=== PATIENT | male | born 1960 | race Two or more races ===

== ENCOUNTER 2018-09-18 09:51 | Observation (INO) ==
[2018-09-18] MEDS ORDERED: Sodium Chloride 0.9% 1,000 ML PRIMARY IV ONE (10:10)
[2018-09-18] MEDS ORDERED: ONDANSETRON 4 MG/2 ML VIAL IVP ONE (10:10)
[2018-09-18] MEDS ORDERED: KETOROLAC 15 MG/1 ML VIAL IVP ONE (10:10)
[2018-09-18] MEDS ORDERED: ASPIRIN 81 MG (BABY) CHEWABLE TABLET PO ONE (10:10)
[2018-09-18] MEDS ORDERED: NITROGLYCERIN 0.4 MG SL TAB (BOTTLE OF 3) SL ONE (10:10)
--- NOTE | 2018-09-18 10:14 | PDOC ---
Chest Pain HPI - General Chief Complaint: Chest Pain Stated Complaint: CHEST PAIN SINCE 2329 Date Seen by Provider: 09/18/18 Time Seen by Provider: 09:50 Source: Patient Treatment Prior to Arrival: REPORTS: None Nurse's Notes Reviewed & Considered: Yes - History of Present Illness Initial Comments: This is a well-developed, well-nourished, 57-year-old male, complaining of chest pain. Patient is a who was just released from a group home in [place] and is traveling through [place] on his way home. He's had 3 days of chest pain that became acutely worse today with dizziness which is what impelled him to come to the emergency room. He stopped here in [place] to fuel his car and when he became dizzy he sought medical attention. Presently he has chest pain that he describes as sharp substernal with radiation to his upper chest and neck. He has associated shortness of breath. Patient is complaining of a mild headache, denies any runny nose or sore throat, has mild cough, denies any nausea vomiting or diarrhea, no fever chills or sweats, no dysuria or hematuria, no rashes. 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 Some of his stories appear to be fabricated. Patient does have a history of bypass grafting and is uncertain of how many grafts he has. Body Location Affected: REPORTS: Chest Timing: REPORTS: Constant Duration: <1 week (3 days) Severity: Moderate Context: REPORTS: Activity Quality: REPORTS: "Pain", Sharpness Radiation: REPORTS: Jaw (L), Neck (L) Associated Symptoms: REPORTS: Shortness of Breath, Hurts to Breathe Modifying Factors: improves with: None Reported Similar Symptoms Previously: Yes Any Prior Injuries Related to Current Complaint?: No - Patient Home Medications Home Medications: Home Medications Apixaban [Eliquis] 2.5 mg PO BID 09/18/18 Cyclosporine [Restasis] 2 drp EACH EYE DAILY 09/18/18 Digoxin [Digox] 250 mcg PO DAILY 09/18/18 Naloxegol Oxalate [Movantik] 25 mg PO DAILY 09/18/18 RX: Amiodarone HCl 400 mg PO BID 09/18/18 RX: Atorvastatin Calcium 80 mg PO BEDTIME 09/18/18 RX: Baclofen 20 mg PO BID 09/18/18 RX: Buspirone HCl 5 mg PO BID 09/18/18 RX: Fluoxetine HCl 60 mg PO DAILY 09/18/18 RX: Furosemide 20 mg PO DAILY 09/18/18 RX: Glyburide 2.5 mg PO BID 09/18/18 RX: Metoprolol Succinate 50 mg PO BID 09/18/18 RX: Mirtazapine 45 mg PO BEDTIME 09/18/18 RX: Potassium Chloride [K-Tab ER] 20 meq PO DAILY 09/18/18 metFORMIN Tab [Glucophage Tab] 1,000 mg PO BID 09/18/18 - Patient Allergies Allergies/Adverse Reactions: Allergies Allergy/AdvReac Type Severity Reaction Status Date / Time divalproex sodium Allergy Severe Other : Verified 09/18/18 10:08 [From Depakote] See Comment trazodone Allergy Severe Anaphylaxis Verified 09/18/18 10:09 meperidine [From Demerol] Allergy Unknown Not Verified 09/18/18 10:09 Applicable ROS - Limitations ROS Limitations: No Limitations Constitution: REPORTS: Denies Symptoms Cardiovascular: REPORTS: Chest Pain Respiratory: REPORTS: Hurts To Breathe, Shortness Of Breath Neurological: REPORTS: Headache Gastrointestinal: REPORTS: Denies GI Symptoms Endocrine: REPORTS: Denies Symptoms Musculoskeletal: REPORTS: Neck Pain Genitourinary: REPORTS: Denies Symptoms Eyes: REPORTS: Denies Symptoms ENT: REPORTS: Denies Symptoms Skin: REPORTS: Denies Skin Symptoms Lympathic: REPORTS: Denies Lympathic Symptoms Immunologic: POSITIVE: Denies Symptoms Psychiatric: POSITIVE: Denies Psych Symptoms Chest Pain PE - General Appearance General Appearance: REPORTS: Alert, Cooperative, No Acute Distress, No Evidence of Trauma - HEENT HEENT: POSITIVE: Head Inspection Nml, Eyes Inspection Nml, Ears Inspection Nml, Nose Inspection Nml, Oral/Dental Inspect. Nml, Pharynx Inspect. Nml, PERRL, EOMI - Neck Neck: REPORTS: Normal Inspection - Respiratory Respiratory: REPORTS: No Respiratory Distress, Breath Sounds Normal, Chest Non- Tender - Cardiovascular Cardiovascular: REPORTS: Regular Rate and Rhythm, Heart Sounds Normal, Strong Pulses, No Murmur, No Gallop, No Friction Rub, No JVD Peripheral Pulses: Radial (L): 4+ - Abdomen Abdomen: Soft: (All Quadrants), Normal Bowel Sounds: (All Quadrants), Denies Tenderness: (All Quadrants), No Splenomegaly: (All Quadrants), No Hepatomegaly: (All Quadrants), No Guarding: (All Quadrants), No Rebound: (All Quadrants), No Palpable Pulse: (All Quadrants), No Palpabale Mass: (All Quadrants), No Distention: (All Quadrants), No Rigidity: (All Quadrants) - Skin Skin: REPORTS: Intact, Normal For Race, Warm, Dry, No Rash - Extremities Extremity: Non-Tender: (All Extremities), Normal ROM: (All Extremities), Normal Inspection: (All Extremities), Pelvis Stable: (All Extremities) - Neurological / Psychological Neurological: POSITIVE: Affect Apporpriate, Oriented X3, Motor Normal, Sensation Normal Chest Pain Progress - Results Reviewed by me Xrays/CTs/US Reviewed by me: Yes Discussed with Radiologist: Yes Lab Results Reviewed by Me: Yes CBC and BMP: 09/18/18 10:45 09/18/18 10:53 Lab Results:: Laboratory Results 09/18/18 09/18/18 09/18/18 10:45 10:45 10:53 WBC 11.0 H RBC 4.45 L Hgb 11.7 L Hct 36.6 L MCV 82 MCH 26.4 L MCHC 32.0 L RDW Coeff of Sonya 15.2 H Plt Count 256 MPV 7.7 Neut % (Auto) 66.6 Lymph % (Auto) 18.2 Pitt % (Auto) 9.8 Eos % (Auto) 4.8 Baso % (Auto) 0.6 Neut # (Auto) 7.35 Lymph # (Auto) 2.01 Pitt # (Auto) 1.08 H Eos # (Auto) 0.53 Baso # (Auto) 0.07 WBC Morphology Comment Normal morphology Plt Morphology Comment Normal morphology RBC Morph Comment Normal morphology PT 15.3 H INR 1.33 APTT 22.7 L D-Dimer 353 H VBG pH 7.45 H VBG pCO2 33 L VBG HCO3 23 VBG Base Excess -1 Sodium Potassium Chloride Carbon Dioxide Anion Gap BUN Creatinine Estimated GFR BUN/Creatinine Ratio Glucose Calculated Osmolality Lactic Acid Calcium Magnesium Total Bilirubin AST ALT Alkaline Phosphatase CK-MB (CK-2) Troponin I Handheld C-Reactive Protein NT-Pro-B Natriuret Pep Total Protein Albumin Globulin Albumin/Globulin Ratio TSH Ur Collection Type Urine Color Urine Clarity Urine pH Ur Specific [place] U Specif Grav (Refrac) Urine Protein Urine Glucose (UA) Urine Ketones Urine Occult Blood Urine Nitrate Urine Bilirubin Urine Urobilinogen Ur Leukocyte Esterase Ur Culture Indicated? Urine Opiates Screen Ur Buprenorphine Ur Oxycodone Screen Urine Methadone Screen Ur Propoxyphene Screen Barbiturate Screen U Tricyclic Antidepress Phencyclidine Screen Amphetamines Screen U Methamphetamines Scrn Benzodiazepines Screen Cocaine Screen U Marijuana (THC) Screen Serum Alcohol 09/18/18 09/18/18 09/18/18 10:53 10:53 10:53 WBC RBC Hgb Hct MCV MCH MCHC RDW Coeff of Sonya Plt Count MPV Neut % (Auto) Lymph % (Auto) Pitt % (Auto) Eos % (Auto) Baso % (Auto) Neut # (Auto) Lymph # (Auto) Pitt # (Auto) Eos # (Auto) Baso # (Auto) WBC Morphology Comment Plt Morphology Comment RBC Morph Comment PT INR APTT D-Dimer VBG pH VBG pCO2 VBG HCO3 VBG Base Excess Sodium 145 Potassium 4.1 Chloride 108 Carbon Dioxide 21 L Anion Gap 16 BUN 17 Creatinine 1.1 Estimated GFR > 60 BUN/Creatinine Ratio 15.45 Glucose 164 H Calculated Osmolality 305.0 H Lactic Acid 3.2 H Calcium 9.1 Magnesium 2.1 Total Bilirubin 0.3 AST 38 ALT 53 Alkaline Phosphatase 66 CK-MB (CK-2) 3.34 Troponin I Handheld C-Reactive Protein 2.0 H NT-Pro-B Natriuret Pep 580 H Total Protein 7.0 Albumin 4.0 Globulin 3.0 Albumin/Globulin Ratio 1.30 TSH 2.37 Ur Collection Type Urine Color Urine Clarity Urine pH Ur Specific [place] U Specif Grav (Refrac) Urine Protein Urine Glucose (UA) Urine Ketones Urine Occult Blood Urine Nitrate Urine Bilirubin Urine Urobilinogen Ur Leukocyte Esterase Ur Culture Indicated? Urine Opiates Screen Ur Buprenorphine Ur Oxycodone Screen Urine Methadone Screen Ur Propoxyphene Screen Barbiturate Screen U Tricyclic Antidepress Phencyclidine Screen Amphetamines Screen U Methamphetamines Scrn Benzodiazepines Screen Cocaine Screen U Marijuana (THC) Screen Serum Alcohol 09/18/18 09/18/18 09/18/18 10:53 10:53 12:17 WBC RBC Hgb Hct MCV MCH MCHC RDW Coeff of Sonya Plt Count MPV Neut % (Auto) Lymph % (Auto) Pitt % (Auto) Eos % (Auto) Baso % (Auto) Neut # (Auto) Lymph # (Auto) Pitt # (Auto) Eos # (Auto) Baso # (Auto) WBC Morphology Comment Plt Morphology Comment RBC Morph Comment PT INR APTT D-Dimer VBG pH VBG pCO2 VBG HCO3 VBG Base Excess Sodium Potassium Chloride Carbon Dioxide Anion Gap BUN Creatinine Estimated GFR BUN/Creatinine Ratio Glucose Calculated Osmolality Lactic Acid Calcium Magnesium Total Bilirubin AST ALT Alkaline Phosphatase CK-MB (CK-2) Troponin I Handheld 0.010 C-Reactive Protein NT-Pro-B Natriuret Pep Total Protein Albumin Globulin Albumin/Globulin Ratio TSH Ur Collection Type Clean catch urine Urine Color Dark yellow Urine Clarity Clear Urine pH 5.5 Ur Specific [place] 1.020 U Specif Grav (Refrac) 1.020 Urine Protein Trace Urine Glucose (UA) Negative Urine Ketones 15 Urine Occult Blood Negative Urine Nitrate Negative Urine Bilirubin Small Urine Urobilinogen 1.0 Ur Leukocyte Esterase Negative Ur Culture Indicated? Culture not set Urine Opiates Screen Negative Ur Buprenorphine Negative Ur Oxycodone Screen Negative Urine Methadone Screen Negative Ur Propoxyphene Screen Negative Barbiturate Screen Negative U Tricyclic Antidepress Negative Phencyclidine Screen Negative Amphetamines Screen Negative U Methamphetamines Scrn Negative Benzodiazepines Screen Positive H Cocaine Screen Negative U Marijuana (THC) Screen Negative Serum Alcohol < 10 EKG Interpretation:: POSITIVE: Normal Sinus Rhythm - Patient's Progress Re-Examine Time: 12:52 Status: POSITIVE: Improved MDM / ED Course: Patient was evaluated, an IV started, blood drawn and sent to the lab for studies, EKG, chest x-ray, and CT scan of his chest were obtained. Findings: CBC shows white count of 11, hemoglobin 11.7, hematocrit 36.6, platelets are 256. Coag studies show PT of 15.3, INR 1.33, PTT of 22.7. D- dimer is elevated at 353. CK-MB is 3.34 and troponin is 0.010. EKG shows a sinus rhythm with a rate of 65 beats a minute and no ST elevations. Lactic acid is 2.2. Blood gases show a pH of 7.45, PCO2 of 33, October 23, base excess of - 1. CMP shows a CO2 of 21 and glucose 164, the remainder the panel is normal. BNP is elevated at 580. CRP is 2.0. TSH is normal at 2.37. Urinalysis is negative. Urine drug screen is positive for benzodiazepines and negative for all other substances tested. Blood alcohol is less than 10. Lactic acid is 3.2. Chest x-ray shows vascular congestion versus pneumonitis. CT scan of the chest shows no PE but there is acute left-sided heart failure that partially explains the x-ray findings. Assessment: #1 chest pain with normal enzymes and EKG. #2 congestive heart failure. #3 hypoxia. Plan: Admission to rule out myocardial infarction. Quality Measure Initiative: CP/AMI: POSITIVE: EKG Quality Measure Initiative: CAP: POSITIVE: CXR or CT - Consult Consult (If Yes, Name of Consulting MD & Time Called): Yes (Dr. Giordano) Consulting MD will see pt:: POSITIVE: [facility] [place] Admit Counseled: POSITIVE: Patient, RE: Lab Results, RE: Radiology Results, RE: DX, RE: Need for F/U Patient Care Time - Estimated PCT Patient Care Time (In Minutes): 45 Vital Signs - VS Reviewed Vital Signs Reviewed: Yes Discharge Clinical Impression: Chest pain Discharge Disposition: Admit to Inpatient Condition: Stable Date Decision to Admit to Inpatient: 09/18/18 Time Decision to Admit to Inpatient: 12:51
--- NOTE | 2018-09-18 10:14 | EKG ---
[address] [address] Measurements Intervals [place] Rate: 65 P: 21 DC: 229 QRS: 59 QRSD: 98 T: 66 QT: 465 QTc: 476 Interpretive Statements SINUS RHYTHM WITH FIRST DEGREE AV BLOCK MODERATE ST DEPRESSION [0.05+ mV ST DEPRESSION] PROLONGED QT INTERVAL No previous ECG available for comparison Electronically Signed On 09-18-18 17:58:41 MDT by Wale Hernandez [email or web address]
[2018-09-18 10:52] LABS: RED BLOOD COUNT 4.45 10^6/uL (4.70-6.10)
[2018-09-18 10:53] LABS: BASOPHILS # (AUTO) 0.07 10*3/UL; BASOPHILS % (AUTO) 0.6 % (0-1); EOSINOPHILS # (AUTO) 0.53 10*3/UL; EOSINOPHILS % (AUTO) 4.8 % (0-8); Hematocrit [HCT] 36.6 % (42.0-52.0); Hemoglobin [HGB] 11.7 g/dL (14.0-18.0); LYMPHOCYTES # (AUTO) 2.01 10*3/uL; MEAN CORPUSCULAR HEMOGLOBIN 26.4 PG (27-31); MEAN CORPUSCULAR VOLUME 82 FL (80-90); MEAN PLATELET VOLUME 7.7 FL (7.4-12.2); MONOCYTES # (AUTO) 1.08 10*3/UL (0.3-0.8); MONOCYTES % (AUTO) 9.8 % (5-15); NEUTROPHILS # (AUTO) 7.35 10*3/UL; NEUTROPHILS % (AUTO) 66.6 % (50-80); PLATELET MORPHOLOGY COMMENT NORMAL MORPHOLOGY (NORM); RBC MORPHOLOGY COMMENT NORMAL MORPHOLOGY (NORM); WBC MORPHOLOGY COMMENT NORMAL MORPHOLOGY (NORM)
[2018-09-18 10:55] LABS: VENOUS PH 7.45 (7.32-7.42)
[2018-09-18 11:06] LABS: BLOOD UREA NITROGEN 17 mg/dL (7-22); BUN/CREATININE RATIO 15.45 (6-20)
--- NOTE | 2018-09-18 11:09 | DI ---
EXAM: XR Chest, 1 View CLINICAL HISTORY: Chest pain TECHNIQUE: Frontal view of the chest. COMPARISON: No relevant prior studies available. FINDINGS: Lungs: Mildly increased interstitial markings. The lungs are otherwise clear without focal consolidation. Pleural space: Unremarkable. The costophrenic angles are sharp. No visible pneumothorax. Heart: Unremarkable. No cardiomegaly. Mediastinum: Unremarkable. Bones/joints: Status post median sternotomy. Mild degenerative changes throughout the visualized spine and shoulder joints. IMPRESSION: Mildly increased interstitial markings. This is nonspecific but may suggest pulmonary vascular congestion or an interstitial pneumonitis. No focal consolidation.
[2018-09-18 12:20] LABS: BILIRUBIN,URINE SMALL (NEG); CLARITY,URINE CLEAR (CLEAR); GLUCOSE, URINE (UA) NEGATIVE (NEG); OCCULT BLOOD,URINE NEGATIVE (NEG); PH,URINE 5.5 (5.0-8.5); PROTEIN,URINE TRACE mg/dl (NEG)
[2018-09-18 12:21] LABS: COLOR,URINE DARK YELLOW (Y); URINE SAMPLE TYPE CLEAN CATCH URINE
--- NOTE | 2018-09-18 12:23 | DI ---
CT ANGIOGRAM OF THE CHEST, 09/18/2018 11:29 AM : Clinical History: Chest pain. Shortness of breath. Status post recent CABG. Previous Exam: None at this facility. Comparison is made with the AP portable upright chest x-ray obt ained earlier today at 1016 hours. Technique: Scans from base of neck to lung bases with IV contrast. Bolus tracking protocol was used f or timing the injection. Non-MIPS and MIPS sagittal/coronal images generated. IV Contrast: 80 mL of Ultravist 370. Base of Neck: Normal. Nodes: Normal axillary, supraclavicular, mediastinal, and hilar lymph nodes. Heart: Status post CABG. There is no pericardial effusion. No chamber enlargement is appreciated. The re is reflux of contrast into the inferior vena cava indicating tricuspid insufficiency. Aorta: Normal thoracic aorta. No aneurysm or dissection. Pulmonary Arteries: No pulmonary emboli or pulmonary embolism with infarction present. There is mild pulmonary arterial hypertension. Lungs: No acute infiltrates. There are Juan Manuel A line Juan Manuel B lines present with a diffuse groundglas s pattern throughout both lungs with a gradient from anterior to posterior with more changes posterio rly. These findings are consistent with acute left heart failure. Review of the chest x-ray shows rev ersal of flow to the upper lobes with peribronchial cuffing and increased vascular markings in both l ungs with a normal heart size. These chest x-ray changes reflect acute left heart failure. Effusion(s): None. Nodules: None. Bony Structures: Normal visualized portions of ribs, scapulae, clavicles, and shoulders. The sternum shows evidence of a recent midline sternotomy. Normal visualized portions of thoracic spine. Limited Upper Abdomen: Normal adrenal glands and spleen. Normal limited views of liver and pancreas. READIN. There is no pulmonary embolism or pulmonary embolism with infarction. Mild pulmonary arterial hyp ertension is present. 2. Normal heart size with evidence of acute interstitial changes and alveolar edema indicating acute left heart failure. These findings match the findings on the chest x-ray obtained earlier today. 3. Evidence of tricuspid insufficiency. Radiographic evidence for right heart failure could be maske d by the tricuspid insufficiency.
[2018-09-18 12:35] LABS: AMPHETAMINE SCREEN NEGATIVE (NEG); CANNABINOID SCREEN,URINE NEGATIVE (NEG); COCAINE SCREEN NEGATIVE (NEG); METHADONE URINE SCREEN NEGATIVE (NEG); METHAMPHETAMINES SCREEN,URINE NEGATIVE (NEG); OPIATE SCREEN,URINE NEGATIVE (NEG)
[2018-09-18] MEDS ORDERED: MORPHINE SULFATE 4 MG/1 ML IVP ONE (14:44)
[2018-09-18] MEDS ORDERED: LORazepam 2 MG/1 ML VIAL IVP ONE (14:44)
[2018-09-18] MEDS ORDERED: MORPHINE SULFATE 4 MG/1 ML ONE (14:49)
[2018-09-18] MEDS ORDERED: LORazepam 2 MG/1 ML VIAL ONE (14:49)
[2018-09-18] MEDS ORDERED: FUROSEMIDE 10 MG/1 ML - 2 ML VIAL IVP ONE (15:41)
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
[2018-09-18] MEDS ORDERED: LIDOCAINE W/ SODIUM BICARB 0.5 ML SYR SUBD PRN (15:48)
[2018-09-18] MEDS ORDERED: CALCIUM CARBONATE 500 MG (TUMS) CHEWABLE TABLET PO PRN (15:48)
[2018-09-18 20:34] VITALS: RESP 20
[2018-09-18] MEDS: Apixaban Tab 2.5 MG TABLET PO SCH (20:52)
[2018-09-18] MEDS: AMIODARONE 200 MG TABLET PO SCH (20:54)
[2018-09-18] MEDS: METOPROLOL SUCCINATE 50 MG SR 24H TABLET PO SCH (20:54)
[2018-09-18] MEDS: BACLOFEN 20 MG TABLET PO SCH (20:55)
[2018-09-18] MEDS: ACETAMINOPHEN 325 MG TABLET PO PRN (20:55)
[2018-09-18] MEDS: busPIRone HCL 5 MG TABLET PO SCH (20:56)
[2018-09-18] MEDS ORDERED: ATORVASTATIN 40 MG TABLET PO SCH (21:00)
[2018-09-18] MEDS ORDERED: Mirtazapine Tab 15 MG TAB PO SCH (21:00)
[2018-09-19 03:34] LABS: BLOOD UREA NITROGEN 21 mg/dL (7-22); BUN/CREATININE RATIO 19.09 (6-20)
[2018-09-19] MEDS ORDERED: OMEPRAZOLE 20 MG CAPSULE PO SCH (07:00)
[2018-09-19] MEDS ORDERED: glyBURIDE 5 MG TABLET PO SCH (07:00)
[2018-09-19] MEDS ORDERED: FUROSEMIDE 10 MG/1 ML - 2 ML VIAL IVP SCH (07:00)
[2018-09-19 07:08] VITALS: BP 131/72; TEMP 97.6
[2018-09-19] MEDS: busPIRone HCL 5 MG TABLET PO SCH (08:28)
[2018-09-19] MEDS: BACLOFEN 20 MG TABLET PO SCH (08:28)
[2018-09-19] MEDS: Apixaban Tab 2.5 MG TABLET PO SCH (08:29)
[2018-09-19] MEDS: AMIODARONE 200 MG TABLET PO SCH (08:29)
[2018-09-19] MEDS: METOPROLOL SUCCINATE 50 MG SR 24H TABLET PO SCH (08:32)
[2018-09-19] MEDS: ACETAMINOPHEN 325 MG TABLET PO PRN (08:54)
[2018-09-19] MEDS ORDERED: NALOXEGOL OXALATE 25 MG PO SCH (09:00)
[2018-09-19] MEDS ORDERED: FLUoxetine 20 MG CAPSULE PO SCH (09:00)
[2018-09-19] MEDS ORDERED: DIGOXIN 250 MCG TABLET PO SCH (09:00)
[2018-09-19] MEDS ORDERED: POTASSIUM CHLORIDE 20 MEQ TAB PO SCH (09:00)
--- NOTE | 2018-09-19 09:45 | DCSUMMARY ---
Hospitalization Summary Admit Date: 09/18/2018 Discharge Date: 09/19/18 Hospital Course: Discharge diagnoses 1. chest pain looks musculoskeletal at the site of recent CABG surgery 2. History of coronary artery disease with quadruple bypass back in July 2018 3. History of diabetes 4. History of hypertension 5. History of hypercholesterolemia 6. His anxiety 7. Questionable history of A. fib Hospital course This is a 57-year-old male with medical history significant for history of re cent quadruple CABG done in July 2018, history of diabetes, hypertension, questionable history of A. fib who said he is traveling from [place] through [place]. He had surgery done in July this year, september he stayed a week at the hospital and then from there [facility] the [facility] on September 10. He stayed after that in a motel as his mom does not want him to stay with them again. He's planning to go to [place], he started to have some pain in chest the night before admission pain felt in the anterior chest after sneezing the pain is at the site of the surgery lasted for about 2 hours. He Said he went to the service station the next morning and had another episode of pain felt dizzy and came into the ER. Evaluation was essentially negative except there is question of a CHF on the CT and he was admitted. The pain that he described was after coughing and sneezing. We kept him overnight we repeated His opponent and that remained negative. On the day of discharge he was feeling better his exam was unremarkable we thought he could be discharged home. Though the CT raises possibility of some CHF however clinically he did not appear in CHF. He was comfortable laying in bed does not appear in distress. Did give him a trial of Lasix not sure that helped his symptoms. His lungs remained clear. JVP is not raised. we thought he could be discharged home. He said he doesn't have enough medication so wrte prescription for his medication. I'm not sure he is able to afford those he said he had [facility] from [place] I wrote for 2 weeks of medication prescription. We don't have the capacity to do an echocardiogram until 3 days from the day of discharge. We did request medical records from the hospital in [place] however he did not receive those. Discharge instruction Diet regular Activity as started Medications Home Medications Cyclosporine [Restasis] 2 drp EACH EYE DAILY 09/18/18 [History Confirmed 09/18/18] Amiodarone HCl 400 mg PO BID #28 tab 09/19/18 [Rx] Apixaban [Eliquis] 2.5 mg PO BID #28 tab 09/19/18 [Rx] Atorvastatin Calcium 80 mg PO BEDTIME #14 tab 09/19/18 [Rx] Baclofen 20 mg PO BID #28 tab 09/19/18 [Rx] Buspirone HCl 5 mg PO BID #14 tab 09/19/18 [Rx] Digoxin [Digox] 250 mcg PO DAILY #14 tab 09/19/18 [Rx] Fluoxetine HCl 60 mg PO DAILY #14 cap 09/19/18 [Rx] Furosemide 20 mg PO DAILY #14 tab 09/19/18 [Rx] Glyburide 2.5 mg PO BID #14 tab 09/19/18 [Rx] Metoprolol Succinate 50 mg PO BID #28 tab.er.24h 09/19/18 [Rx] Mirtazapine 45 mg PO BEDTIME #14 tab 09/19/18 [Rx] Naloxegol Oxalate [Movantik] 25 mg PO DAILY #14 tab 09/19/18 [Rx] Potassium Chloride [K-Tab ER] 20 meq PO DAILY #14 tablet.er 09/19/18 [Rx] glyBURIDE Tab [Micronase Tab] 2.5 mg PO BID MEALS #14 tab 09/19/18 [Rx] metFORMIN Tab [Glucophage Tab] 1,000 mg PO BID #28 tab 09/19/18 [Rx] Follow-up with PCP once he is back home Condition at discharge stable for discharge. Exam - Vitals Vital Signs: Vital Signs Temperature 97.6 F Temperature Source Temporal Artery Scan Pulse Rate [Pulse Oximeter 66 Right] Pulse Rate [Telemetry] 63 Pulse Rate [right pointer 66 finger] Pulse Rate 66 Respiratory Rate 20 Blood Pressure [Right Arm] 131/72 Blood Pressure 115/89 Pulse Ox [right pointer finger 95 ] Pulse Ox 96 Oxygen Flow Rate [right 3 pointer finger] Oxygen Flow Rate 3 Oxygen Delivery Method [right Mask-Simple pointer finger] Oxygen Delivery Method Mask-Simple Height 6 ft 2 in Weight 274 lb - General General Appearance: No Acute Distress, Cooperative, Obese - Head Head Exam: Normal Inspection - Eye Eye Exam: POSITIVE: Normal Appearance - ENT ENT Exam: POSITIVE: Normal Exam - Neck Neck Exam: Normal Inspection - Respiratory Respiratory Exam: POSITIVE: Clear to Auscultation - Bilaterally - Cardiovascular Cardiovascular Exam: POSITIVE: RRR - GI/Abdominal GI/Abdominal Exam: POSITIVE: Normal Bowel Sounds, Non Tender, Non Distended, Soft, No Organomegaly - Rectal Rectal Exam: POSITIVE: Deferred - External Exam: POSITIVE: Deferred - Extremities Extremities Exam: POSITIVE: Normal Inspection - Back Back Exam: POSITIVE: Normal Inspection - Neurological Neurological Exam: POSITIVE: Alert, Oriented x 3, CN II-XII Intact, No Facial Droop, Speech Intact / Clear, Moves All Extremities Equally - Psychiatric Psychiatric Exam: POSITIVE: Normal Affect - Integumentary Integumentary Exam: POSITIVE: Normal Color Patient Problems - Patient Problem List (1) Chest pain Current Visit: Yes Status: Acute Code(s): R07.9 - Chest pain, unspecified Category: Medical (2) CHF (congestive heart failure) Current Visit: Yes Status: Acute Code(s): I50.9 - Heart failure, unspecified Category: Medical (3) History of hypertension Current Visit: Yes Status: Acute Code(s): Z86.79 - Personal history of other diseases of the circulatory system Category: Medical (4) Diabetes Current Visit: Yes Status: Acute Code(s): E11.9 - Type 2 diabetes mellitus w ithout complications Category: Medical (5) History of hypercholesterolemia Current Visit: Yes Status: Acute Code(s): Z86.39 - Personal history of other endocrine, nutritional and metabolic disease Category: Medical
[2018-09-19 11:06] VITALS: O2SAT 90
== END 2018-09-19 12:45 | disposition home or self-care (01) ==
LOC: ER 09:51 → MED/SURG 09:51
PROVIDERS: ADMIT Internal Medicine; ATTEND Internal Medicine